=== PATIENT | male | born 1970 | race Caucasian/White ===

== ENCOUNTER 2017-11-15 12:26 | Inpatient (IN) ==
[2017-11-15] MEDS ORDERED: Famotidine 20 MG/2 ML VIAL IVP ONE (12:43)
[2017-11-15] MEDS ORDERED: Pregabalin 75 MG CAPSULE PO ONE (12:44)
[2017-11-15] MEDS ORDERED: Ringers Solution, Lactated 1,000 ML IVC SCH (12:45)
[2017-11-15] MEDS ORDERED: CeFAZolin Syr 2,000MG/20 ML 2,000 MG/20 ML SYRINGE IVPB ONE (13:07)
[2017-11-15] MEDS ORDERED: ROPIVACAINE HCL/PF 0.5% 30 ML VIAL ONE (13:16)
--- NOTE | 2017-11-15 13:23 | History & Physical Report ---
Date of Encounter: 11/15/17 Time of Encounter: 13:23 24 Hour HP Update - Instructions Instructions: If the History and Physical is less than 30 days old and was completed prior to A.M. admission and or procedure and has NOT been updated on calendar day of procedure please complete this update prior to performing procedure. - Update Patient reports changes in Medical Condition: No Changes in examination, assessment, or condition: No Changes in Medication: No Preop tests/diagnostics Reviewed: Yes Surgery Remains Indicated: Yes Consent for Planned Operative Procedure(s) Verified: Yes - Pre-Operative Checklist Preoperative Checklist Indicated: No Prophylactic Antibiotic Ordered: Yes Is VTE Prophylaxis Indicated?: Yes
--- NOTE | 2017-11-15 13:24 | Discharge Summary ---
Date of Encounter: 11/19/17 Time of Encounter: 06:46 - Discharge Diagnosis (1) Tibial plateau fracture, left Priority: Primary Status: Acute Qualifiers: Encounter type: initial encounter Fracture type: closed Qualified Code(s) : S82.142A - Displaced bicondylar fracture of left tibia, initial encounter for closed fracture - Hospital Course Hospital course: Mr. Damico is a 46 year old male Status post open reduction internal fixation left tibial plateau. Patient's discharge held secondary to placement.The patient had an uneventful postoperative course. They received antibiotics and physical therapy and were discharged in stable condition. There will follow-up in the office in 2 weeks. - Time Spent with Patient Total time spent providing and/or coordinating discharge services: - Discharge Medications Home Medications: Buprenorphine HCl/Naloxone HCl [Buprenorphin-Naloxon 8-2 mg Sl] 1.5 tab SL HS [History] DULoxetine [Cymbalta] 20 mg PO HS 11/15/17 [History] Allergies/Adverse Reactions: 3 Allergy/AdvReac Type Severity Reaction Status Date / Time No Known Allergies Allergy Verified 11/15/17 13:07 Primary care physician: PCP NONE - Patient Status Disposition: Transfer Inpatient Rehab Fac Condition: Good Functional capacity at discharge: uses cane/walker Overall status at discharge: patient is progressing back to baseline - Discharge Instructions Follow Up With: NONE,PCP [Primary Care Provider] -
[2017-11-15] MEDS ORDERED: Dexmedetomidine HCl 200 MCG/50 ML MLS IVC ONE (13:26)
--- NOTE | 2017-11-15 13:26 | Anesthesia Evaluation PreOp ---
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 HX Other Medical History: Denies Any Significant HX Anesthesia History: No Prior Anesthetic Complications Alcohol Use: occasionally Drug use: none (suboxone), other Medications and Allergies Buprenorphine HCl/Naloxone HCl [Buprenorphin-Naloxon 8-2 mg Sl] 1.5 mg SL HS [History] DULoxetine [Cymbalta] 20 mg PO HS 11/15/17 [History] 3 Allergy/AdvReac Type Severity Reaction Status Date / Time No Known Allergies Allergy Verified 11/15/17 13:07 - Meds/Allergy Pre-op Review Medications Reviewed: Yes Allergies Reviewed: Yes Beta Blockers on Current Med List: No Anesthesia Exam O2 Sat Height 1.83 m Height 1.83 m Height 1.83 m Weight 98.43 kg Weight 98.43 kg Weight 98.43 kg O2 Sat by Pulse Oximetry 95 O2 Sat by Pulse Oximetry 95 Vital Signs Temp Pulse Resp BP Pulse Ox 98.2 F 80 18 121/68 95 11/15/17 12:53 11/15/17 12:53 11/15/17 12:53 11/15/17 12:53 11/15/17 12:53 Height: 6'0 Weight: 217 lbs NPO (# of Hours): MN Pain Scale: 0 - HEENT Pupil (Motor): Pupils equal, EOMI Mallampati: III Teeth: Missing, Poor dentition Oral Opening: Greater than 3 - SHEET METAL PATTERN CUTTER LOC: Oriented SHEET METAL PATTERN CUTTER Motor: Normal RUE, Normal LUE, Normal RLE, Normal LLE, Normal Face SHEET METAL PATTERN CUTTER Sensory: Normal: RUE, LUE, RLE, LLE, Face - Cardiac Rhythm: Regular Murmur: None JVD: No Carotid Bruit: No - Pulmonary Breath Sounds: bilateral Clear Respiratory Effort: Symmetrical Anesthesia Assess/Plan ASA Score: 2 Modified [place] Scale for Level of Consciousness: Cooperative, oriented, and tranquil Anesthetic Plan: General, Regional Monitoring Plan: Standard Monitors Recovery Plan: PACU (Discussed GA and RA, agrees to proceed)
[2017-11-15] MEDS ORDERED: Albuterol 2.5 MG/3 ML NEBULIZER IH ONE (13:29)
[2017-11-15] MEDS ORDERED: Albuterol 2.5 MG/3 ML NEBULIZER ONE (13:33)
[2017-11-15] MEDS ORDERED: *HR* Midazolam HCl 2 MG/2 ML VIAL ONE ×2 (13:36→13:38)
[2017-11-15] MEDS ORDERED: *HR* Propofol 200 MG/20 ML VIAL IVP ONE ×2 (13:37→14:42)
[2017-11-15] MEDS ORDERED: Ondansetron 4 MG/2 ML VIAL ONE (13:40)
[2017-11-15] MEDS ORDERED: Lidocaine -MPF 2% 2 ML VIAL ONE (13:40)
[2017-11-15] MEDS ORDERED: Dexamethasone 4 MG/ML VIAL ONE (13:40)
--- NOTE | 2017-11-15 14:25 | Anesthesia Procedures ---
Date of Encounter: 11/15/17 Time of Encounter: 14:05 Procedures: Anesthesia - Nerve Block Procedure Date: 11/15/17 Time: 14:05 Allergies/Adv Reactions: NKA Pre-op Diagnosis: L Tibial Plateau Fracture Surgical Procedure: ORIF L Tibial Plateau Checklist: Correct Patient Identifier, Correct procedure, History checked Correct side: Left Blood Thinner: No Monitor Applied: EKG, BP, Pulse Oximetry Supplemental Oxygen via Nasal Cannula (L/min): 2 Sedation: Versed (mg): 4 (In addition to 50mg Ketamine) Indication: Post Op Analgesia Pre-op Neuro Deficits: No Block Type: Sciatic, Other (Adductor Canal Block) Catheter placed: No Sterile Technique: Yes Ultrasound used: Yes Anatomy identified: Yes Visual spread of Local: Yes Neuro Stimulation: Yes Nerve Stimulator Range: 0.2 - 0.4 mA (0.4mA for Sciatic.) Blood on Needle Aspiration: No Smooth Injection of Local: Yes Pain with Injection of Local: No Prep: Chlorhexadine Needle: 22 x 50 mm Stimuplex Local: Ropivacaine (0.5% Ropivacaine (20mL) with 10mg Decadron and 20mcg Precedex for Sciatic and 0.5% Ropivacaine 10ml for adductor canal block) Volume (cc): 30 Number of Attempts: 1 Complications: None/effective block Vitals: See nurses vital signs for PNB Comments: Pt tolerated without difficulty.
[2017-11-15] MEDS ORDERED: Ondansetron 4 MG/2 ML VIAL IVP ONE (15:15)
[2017-11-15] MEDS ORDERED: Ketorolac 30 MG/ML VIAL ONE (15:21)
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
--- NOTE | 2017-11-15 15:30 | Orthopedic Operative Note ---
Date of procedure: 11/15/17 Pre-op diagnosis: Displaced left lateral tibial plateau fracture Post-op diagnosis: same Procedure: Procedure: Left Open reduction internal fixation lateral tibial plateau Estimated blood loss: 50 mL Hardware Synthes 3-hole periarticular left lateral plate 4.5, 3 5.0 cannulated locking screws 1 5.0 conical screw 1 4.5 cortical screw Procedure: Patient brought to the operating placed on the operating table. After general anesthesia was administered the well leg was placed in the well leg lima the operative leg was placed in the legholder. The operative leg was prepped and draped in sterile surgical fashion, patient received IV antibiotics prior to skin incision. Utilizing fluoroscopic assistance the fracture was identified. A curved incision was made over the anterolateral aspect of the proximal tibia. Incision made through skin and subcutaneous tissue hemostasis was obtained with Bovie cautery. The fascia was incised along the anterolateral compartment. The muscle was elevated up bluntly off the lateral tibia. The fracture site was exposed. Utilizing fluoroscopic assistance the depressed fragment was identified and elevated with a bone tamp. Position of the fragment in the AP and lateral planes was found to be acceptable with fluoroscopic assistance. A Synthes 3- hole quyen-articular 4.5 plate was approximated to the anterolateral surface. It was fixed distally in compression with a 4.5 cortical screw proximally in compression with one 5.0 conical screw, and with 2 5.0 cannulated locking screws over guide pins. The position of the hardware as well as fracture reduction found acceptable in the AP and lateral planes. A kickstand screw was placed over guidewire 5.0 locking Wound was irrigated fascia was closed with a running #1 PDS suture subcutaneous case tissue to close 0 PDS suture skin was closed with skin arcadio, a sterile dressing postoperative brace extubated transferred to recovery in stable condition. Anesthesia: GETA Surgeon: Grayson Lara Was there an home based assistant present: Yes Reach Truck Operator: Cherie Robles Estimated blood loss (cc): 100 Condition: stable Disposition: PACU
--- NOTE | 2017-11-15 16:20 | Anesthesia Evaluation Post Op ---
Date of Encounter: 11/15/17 Time of Encounter: 16:17 - Vital Signs Vital Signs: Vital Signs/O2 Sat/Glucose, Most Recent Temp Pulse Resp BP Pulse Ox 97.8 F 66 16 117/79 96 11/15/17 15:39 11/15/17 15:59 11/15/17 15:59 11/15/17 15:59 11/15/17 15:59 Blood Glucose* 120 - Lungs Lungs: Clear Ascult./Percussion (O2/2L/NC) - Airway Airway: Non-obstructed - Cardiovascular Regular Rate - Mental Status Mental Status: Alert & Oriented, Answers Appropriately - Pain Pain Scale: 2 Pain Scale used: Numeric (1 - 10) - Nausea Vomiting Nausea Vomiting: Not Present - Hydration Hydration: Tolerates oral liquids, Has not voided Notes: 11/15/17 16:19 AAOx3,VSS with no complaints - Discharge PostOp Status: Transfer Patient to floor
[2017-11-15] MEDS ORDERED: Temazepam 15 MG CAPSULE PO PRN (17:01)
[2017-11-15] MEDS ORDERED: Ondansetron 4 MG/2 ML VIAL IVP PRN (17:01)
[2017-11-15] MEDS ORDERED: Sennosides 8.6 MG TABLET PO PRN (17:01)
[2017-11-15] MEDS ORDERED: Naloxone 0.4 MG/ML INJ IVP PRN (17:01)
[2017-11-15] MEDS ORDERED: MOM Conc 10 ML UD.LIQ PO PRN (17:01)
[2017-11-15] MEDS: NALOXONE HCL SL SCH (17:43)
[2017-11-15] MEDS: BUPRENORPHINE HCL SL SCH (17:43)
--- NOTE | 2017-11-15 18:29 | Event Note ---
Date of Encounter: 11/15/17 Time of Encounter: 18:29 Left ORIF of Tibial Plateau fracture 11/15/17 - Tscope, locked in ext. Partial WB only - XRAYS needed (arcadio) Appts made - printed and faxed to [facility] - confirmed
[2017-11-16 01:05] LABS: Hematocrit 41.1 % (37.5-50.1); Hemoglobin 13.9 g/dL (12.9-16.9)
[2017-11-16 01:25] LABS: BUN/Creatinine Ratio 16 (6-26); Blood Urea Nitrogen 12 mg/dL (6-20); Calcium 9.4 mg/dL (8.6-10.3); Carbon Dioxide 26 mEq/L (23-29); Chloride 102 mEq/L (98-107); Glucose 165 mg/dL (70-105); Osmolality,Calculated 283 (280-300); Potassium 4.6 mEq/L (3.5-5.1); Sodium 135 mEq/L (136-145); eGFR For African Americans > 60 (> 60); eGFR For Non-African Americans > 60 (> 60)
[2017-11-16] MEDS: Ringers Solution, Lactated 1,000 ML IVC SCH ×2 (03:15→18:35)
--- NOTE | 2017-11-16 06:19 | Orthopedics Progress Note ---
Date of Encounter: 11/16/17 Time of Encounter: 06:19 - Assessment and Plan (1) Tibial plateau fracture, left Current Visit: No Status: Acute Qualifiers: Encounter type: initial encounter Fracture type: closed Qualified Code(s) : S82.142A - Displaced bicondylar fracture of left tibia, initial encounter for closed fracture Subjective Interval history: Patient was seen this morning doing well without complaints. Afebrile vital signs stable. Operative extremity: Neurovascularly intact Dressing clean dry and intact Calves nontender Assessment and plan: Continue with postoperative care Hematocrit 41 discharged held secondary to placement Objective Vital signs: Vital Signs Temp Pulse Resp BP Pulse Ox 11/16/17 03:20 97.9 F 58 15 107/61 93 11/16/17 00:08 98 F 63 19 113/68 94 11/15/17 19:55 95 11/15/17 19:50 97.8 F 72 20 116/65 95 11/15/17 18:42 97.9 F 84 15 117/62 92 11/15/17 17:50 98 F 74 15 118/75 90 11/15/17 17:20 97.9 F 70 15 113/78 93 11/15/17 16:50 97.9 F 68 14 120/77 93 11/15/17 16:29 98.1 F 69 17 130/81 96 11/15/17 16:19 71 15 131/87 93 11/15/17 16:09 98.1 F 68 17 130/83 96 11/15/17 15:59 66 16 117/79 96 11/15/17 15:49 64 17 116/69 95 11/15/17 15:39 97.8 F 65 16 107/66 94 11/15/17 14:27 78 12 132/84 96 11/15/17 14:12 78 14 129/77 91 11/15/17 14:02 81 16 130/114 96 11/15/17 13:20 98.2 F 80 18 121/68 95 11/15/17 12:53 98.2 F 80 18 121/68 95 Intake and Output 18 18 11/16/17 15:59 23:59 07:59 Intake Total 440 / 440 550 / 550 Output Total 50 / 50 700 / 700 1300 / 1300 Balance -50 / -50 -260 / -260 -750 / -750 Intake: IV Fluids 100 / 100 Ancef 2,000 MG In 0.9 % Sodium 100 / 100 Chloride 100 ML @ 200 mls/hr IVPB Q8H [facility] Rx#:[id number] Oral 440 / 440 450 / 450 Output: Urine 700 / 700 1300 / 1300 Estimated Blood Loss 50 / 50 Other: Meal Dinner Percent of Meal Consumed 100% Weight 98.43 kg Blood Glucose* 120 164 - Labs CBC & BMP: 11/16/17 00:52 11/16/17 00:52 Labs: Abnormal lab results Sodium 135 mEq/L (136-145) L 11/16/17 00:52 Glucose 165 mg/dL (70-105) H 11/16/17 00:52 POC Glucose 164 mg/dL (70-99) H 11/15/17 20:57 - VTE Documentation of Mechanical Device: Venous foot pump, device Consult Discharge Plan - Plan Referrals: NONE,PCP [Primary Care Provider] -
[2017-11-16] MEDS ORDERED: D5% in Water 1,000 ML IVC PRN (11:26)
[2017-11-16] MEDS ORDERED: Dextrose Gel 15 GM/37.5 ML TUBE PO PRN ×2 (11:26)
[2017-11-16] MEDS ORDERED: *HR* Dextrose 50 % in Water (Syg) 50 ML SYRINGE IVP PRN (11:26)
--- NOTE | 2017-11-16 11:40 | Event Note ---
Date of Encounter: 11/16/17 Time of Encounter: 11:38 PCR- POD#1 status post left lateral tibial plateau ORIF Marco 11/15/17 PCR - Patient seen at bedside. Labwork and medications reviewed. H/H 13.9/41.4 Pain control: Adequate - NO further narcotics per Dr. Lara including upon discharge. Patient asking about changing (decreasing) his Suboxone dosing. We will confirm this with his prescriber to ensure that this is okay. Participating in PT. All questions and concerns addressed. Educated on use of incentive spirometer, ambulation, and hydration. Patient educated on post-operative restrictions and care. Addressed: see above. D/C plan: rehab secondary to social living situation - [facility]
[2017-11-16] MEDS: Insulin LISPRO 300 UNITS/3 ML VIAL SQ SCH ×3 (13:27→22:42)
[2017-11-16] MEDS: BUPRENORPHINE HCL SL SCH (18:33)
[2017-11-16] MEDS: NALOXONE HCL SL SCH (18:33)
[2017-11-17 01:19] LABS: Hematocrit 37.6 % (37.5-50.1); Hemoglobin 12.8 g/dL (12.9-16.9)
[2017-11-17 01:42] LABS: BUN/Creatinine Ratio 26 (6-26); Blood Urea Nitrogen 16 mg/dL (6-20); Carbon Dioxide 27 mEq/L (23-29); Chloride 106 mEq/L (98-107); Glucose 154 mg/dL (70-105); Osmolality,Calculated 292 (280-300); Potassium 4.3 mEq/L (3.5-5.1); Sodium 139 mEq/L (136-145); eGFR For African Americans > 60 (> 60); eGFR For Non-African Americans > 60 (> 60)
--- NOTE | 2017-11-17 06:28 | Orthopedics Progress Note ---
Date of Encounter: 11/17/17 Time of Encounter: 06:27 - Assessment and Plan (1) Tibial plateau fracture, left Current Visit: No Status: Acute Qualifiers: Encounter type: initial encounter Fracture type: closed Qualified Code(s) : S82.142A - Displaced bicondylar fracture of left tibia, initial encounter for closed fracture Subjective Interval history: Patient was seen this morning doing well without complaints. Afebrile vital signs stable. Operative extremity: Neurovascularly intact Dressing clean dry and intact Calves nontender Assessment and plan: Continue with postoperative care Hematocrit 37 discharged held secondary to placement Concern on afternoon rounds for dropfoot left side, this was not evaluated as a case in the morning. This morning patient does not have a dropfoot. Neurovascular intact Objective Vital signs: Vital Signs Temp Pulse Resp BP Pulse Ox 11/17/17 00:23 98.1 F 67 14 111/65 99 11/16/17 21:06 97 11/16/17 20:04 98.2 F 64 14 132/70 97 11/16/17 15:51 97.7 F 60 17 126/72 98 11/16/17 11:29 97.5 F L 56 15 137/75 97 11/16/17 08:00 92 11/16/17 07:47 97.7 F 63 16 104/65 92 Intake and Output 11/16/17 11/16/17 11/17/17 15:59 23:59 07:59 Intake Total 580 / 580 1120 / 1120 400 / 400 Output Total 900 / 900 575 / 575 900 / 900 Balance -320 / -320 545 / 545 -500 / -500 Intake: IV Fluids 1000 / 1000 Lactated Ringers 1,000 ML @ 75 1000 / 1000 mls/hr IVC .[id number] [facility] Rx#: [id number] Oral 580 / 580 120 / 120 400 / 400 Output: Urine 900 / 900 575 / 575 900 / 900 Other: Meal Lunch Dinner Percent of Meal Consumed 100% 100% Blood Glucose* 125 157 - Labs CBC & BMP: 11/17/17 00:55 11/17/17 00:55 Labs: Abnormal lab results Hgb 12.8 g/dL (12.9-16.9) L 11/17/17 00:55 Creatinine 0.61 mg/dL (0.70-1.30) L 11/17/17 00:55 Glucose 154 mg/dL (70-105) H 11/17/17 00:55 POC Glucose 125 mg/dL (70-99) H 11/16/17 15:55 - VTE Documentation of Mechanical Device: Venous foot pump, device Consult Discharge Plan - Plan Referrals: NONE,PCP [Primary Care Provider] -
[2017-11-17] MEDS: Insulin LISPRO 300 UNITS/3 ML VIAL SQ SCH ×3 (07:31→16:23)
[2017-11-17] MEDS: Ibuprofen 600 MG TABLET PO PRN ×2 (09:51→16:20)
[2017-11-17] MEDS: Ringers Solution, Lactated 1,000 ML IVC SCH (16:22)
--- NOTE | 2017-11-17 17:58 | Event Note ---
Date of Encounter: 11/17/17 Time of Encounter: 11:45 PCR- POD#2 status post left lateral tibial plateau ORIF Marco 11/15/17 PCR - Patient seen at bedside. Friend at bedside. Vital signs reviewed. Labwork and medications reviewed. 11/16 H/H 13.9/41.4 11/17 H/H 12.8/37.6 Pain control: Adequate - NO further narcotics per Dr. Lara including upon discharge. Patient asking about changing (decreasing) his Suboxone dosing. We will confirm this with his prescriber to ensure that this is okay. Received call later in day that patient ok to decrease suboxone dosing. Participating in PT. OK FOR CPM OUT OF BRACE - OTHERWISE TROM IN LOCKED EXTENSION WITH AMBULATION. PWB. NO foot drop noted on exam. Swelling much improved today with near full ROM left ankle. Patient still c/o pain to left calf however less intense than yesterday and swelling much improved. All questions and concerns addressed. Educated on use of incentive spirometer, ambulation, and hydration. Patient educated on post-operative restrictions and care. Addressed: OK FOR CPM OUT OF BRACE - OTHERWISE TROM IN LOCKED EXTENSION WITH AMBULATION. PWB.. [facility]C [facility] [place].
[2017-11-17] MEDS: BUPRENORPHINE HCL SL SCH (18:15)
[2017-11-17] MEDS: NALOXONE HCL SL SCH (18:15)
[2017-11-18] MEDS: Insulin LISPRO 300 UNITS/3 ML VIAL SQ SCH ×5 (03:18→20:53)
[2017-11-18] MEDS: Ibuprofen 600 MG TABLET PO PRN (05:57)
--- NOTE | 2017-11-18 06:24 | Orthopedics Progress Note ---
Date of Encounter: 11/18/17 Time of Encounter: 06:24 - Assessment and Plan (1) Tibial plateau fracture, left Current Visit: No Status: Acute Qualifiers: Encounter type: initial encounter Fracture type: closed Qualified Code(s) : S82.142A - Displaced bicondylar fracture of left tibia, initial encounter for closed fracture Subjective Interval history: Patient was seen this morning doing well without complaints. Afebrile vital signs stable. Operative extremity: Neurovascularly intact Dressing clean dry and intact Calves nontender Assessment and plan: Continue with postoperative care Discharge when placed Objective Vital signs: Vital Signs Temp Pulse Resp BP Pulse Ox 11/17/17 23:47 98.0 F 58 14 128/76 95 11/17/17 21:35 99 11/17/17 19:24 98.1 F 72 16 124/73 99 11/17/17 15:16 97.7 F 70 15 114/68 95 11/17/17 11:07 97.8 F 81 12 126/74 96 11/17/17 09:00 99 11/17/17 06:41 97.9 F 64 18 115/70 99 Intake and Output 11/17/17 11/17/17 11/18/17 15:59 23:59 07:59 Intake Total 540 / 540 Output Total 200 / 200 300 / 300 Balance -200 / -200 240 / 240 Intake: Oral 540 / 540 Output: Urine 200 / 200 300 / 300 Other: Meal Dinner Percent of Meal Consumed 75% Blood Glucose* 120 119 - Labs CBC & BMP: 11/17/17 00:55 11/17/17 00:55 Labs: Abnormal lab results Hgb 12.8 g/dL (12.9-16.9) L 11/17/17 00:55 Creatinine 0.61 mg/dL (0.70-1.30) L 11/17/17 00:55 Glucose 154 mg/dL (70-105) H 11/17/17 00:55 POC Glucose 119 mg/dL (70-99) H 11/17/17 16:22 - VTE Documentation of Mechanical Device: Venous foot pump, device Consult Discharge Plan - Plan Referrals: NONE,PCP [Primary Care Provider] -
[2017-11-18] MEDS: SUBOXONE PO SCH (08:36)
--- NOTE | 2017-11-18 11:47 | Event Note ---
Date of Encounter: 11/18/17 Time of Encounter: 12:05 PCR- POD#3 status post left lateral tibial plateau ORIF Marco 11/15/17 PCR - Patient seen at bedside. Friend at bedside. Vital signs reviewed. Labwork and medications reviewed. 11/16 H/H 13.9/41.4 11/17 H/H 12.8/37.6 Pain control: Adequate - NO further narcotics per Dr. Lara including upon discharge. Patient asking about changing (decreasing) his Suboxone dosing. We will confirm this with his prescriber to ensure that this is okay. Received call later in day that patient ok to decrease suboxone dosing. Participating in PT. OK FOR CPM OUT OF BRACE - OTHERWISE TROM IN LOCKED EXTENSION WITH AMBULATION. PWB. NO foot drop noted on exam. Swelling much improved today with near full ROM left ankle. Patient still c/o pain to left calf however less intense than yesterday and swelling much improved. TROM brace in place. All questions and concerns addressed. Educated on use of incentive spirometer, ambulation, and hydration. Patient educated on post-operative restrictions and care. Addressed: OK FOR CPM OUT OF BRACE - OTHERWISE TROM IN LOCKED EXTENSION WITH AMBULATION. PWB.. *Patient on last day of supply of Suboxone - working to clarify how patient to continue his rehab drug therapy; Nurse navigator working to help get patient therapy arranged. D/C plan: rehab secondary to social living situation - awaiting placement
[2017-11-18] MEDS ORDERED: SUBOXONE PO SCH (18:00)
--- NOTE | 2017-11-19 06:47 | Orthopedics Progress Note ---
Date of Encounter: 11/19/17 Time of Encounter: 06:47 - Assessment and Plan (1) Tibial plateau fracture, left Current Visit: No Status: Acute Qualifiers: Encounter type: initial encounter Fracture type: closed Qualified Code(s) : S82.142A - Displaced bicondylar fracture of left tibia, initial encounter for closed fracture Subjective Interval history: Patient was seen this morning doing well without complaints. Afebrile vital signs stable. Operative extremity: Neurovascularly intact Dressing clean dry and intact Calves nontender Assessment and plan: Continue with postoperative care Discharge today Objective Vital signs: Vital Signs Temp Pulse Resp BP Pulse Ox 11/19/17 06:36 98.1 F 79 16 107/66 93 11/18/17 23:45 98.7 F 72 16 121/75 92 11/18/17 19:23 98.5 F 68 14 123/75 94 11/18/17 15:13 98.1 F 60 16 118/70 95 11/18/17 11:42 98.1 F 55 16 112/70 98 11/18/17 06:58 97.9 F 59 16 126/70 94 Intake and Output 11/18/17 11/18/17 11/19/17 15:59 23:59 07:59 Intake Total 240 / 240 50 / 50 50 / 50 Output Total 400 / 400 1750 / 1750 825 / 825 Balance -160 / -160 -1700 / -1700 -775 / -775 Intake: Oral 240 / 240 50 / 50 50 / 50 Output: Urine 400 / 400 1750 / 1750 825 / 825 Other: Meal Breakfast Dinner Percent of Meal Consumed 100% 100% Blood Glucose* 176 125 - Labs CBC & BMP: 11/17/17 00:55 11/17/17 00:55 Labs: Abnormal lab results Hgb 12.8 g/dL (12.9-16.9) L 11/17/17 00:55 Creatinine 0.61 mg/dL (0.70-1.30) L 11/17/17 00:55 Glucose 154 mg/dL (70-105) H 11/17/17 00:55 POC Glucose 106 mg/dL (70-99) H 11/18/17 06:56 - VTE Documentation of Mechanical Device: Venous foot pump, device Consult Discharge Plan - Plan Referrals: NONE,PCP [Primary Care Provider] -
[2017-11-19] MEDS: Insulin LISPRO 300 UNITS/3 ML VIAL SQ SCH ×4 (07:24→19:43)
[2017-11-19] MEDS: SUBOXONE PO SCH (08:51)
--- NOTE | 2017-11-19 11:45 | Event Note ---
Date of Encounter: 11/19/17 Time of Encounter: 08:40 PCR- POD#4 status post left lateral tibial plateau ORIF Marco 11/15/17 PCR - Patient seen at bedside. Vital signs reviewed. Labwork and medications reviewed. 11/16 H/H 13.9/41.4 11/17 H/H 12.8/37.6 Pain control: Adequate - NO further narcotics per Dr. Lara including upon discharge. Patient asking about changing (decreasing) his Suboxone dosing. We will confirm this with his prescriber to ensure that this is okay. Received call later in day that patient ok to decrease suboxone dosing. 11/17 Participating in PT. OK FOR CPM OUT OF BRACE - OTHERWISE TROM IN LOCKED EXTENSION WITH AMBULATION. PWB. NO foot drop noted on exam. Swelling much improved today with near full ROM left ankle. Patient still c/o pain to left calf however less intense than yesterday and swelling much improved. TROM brace in place. All questions and concerns addressed. Educated on use of incentive spirometer, ambulation, and hydration. Patient educated on post-operative restrictions and care. Addressed: OK FOR CPM OUT OF BRACE - OTHERWISE TROM IN LOCKED EXTENSION WITH AMBULATION. PWB.. *Patient on last day of supply of Suboxone - patient to transition to Subutex while inpatient. Patient will go to rehab with script for this from attending physician for transfer. Patient's prescriber and rehab team to be continually notified regarding patient's change of status regarding location and transfer so they can follow and see him immediately following discharge from F. D/C plan: rehab secondary to social living situation - awaiting placement
[2017-11-19] MEDS: *HR* Buprenorphine HCl 8 MG TAB.SUBL SL SCH (16:59)
[2017-11-20] MEDS ORDERED: Ketorolac 30 MG/ML VIAL IVP ONE (07:39)
[2017-11-20] MEDS: Insulin LISPRO 300 UNITS/3 ML VIAL SQ SCH ×4 (07:46→21:03)
[2017-11-20] MEDS: *HR* Buprenorphine HCl 8 MG TAB.SUBL SL SCH ×2 (07:46→17:32)
[2017-11-20] MEDS: Ibuprofen 600 MG TABLET PO PRN (20:59)
[2017-11-21] MEDS: Insulin LISPRO 300 UNITS/3 ML VIAL SQ SCH ×4 (08:41→20:40)
[2017-11-21] MEDS: *HR* Buprenorphine HCl 8 MG TAB.SUBL SL SCH ×2 (08:42→17:39)
--- NOTE | 2017-11-21 16:47 | Orthopedics Progress Note ---
Date of Encounter: 11/20/17 Time of Encounter: 08:25 Subjective Principal diagnosis: s/p left knee ORIF Interval history: The patient is without complaints. Afebrile vital signs are stable. Incision is clean dry and intact. Neurovascularly intact with regard to bilateral lower extremities. Fires all upper and lower extremity motor groups. Assessment : stable. Plan mobilize ,continue analgesics, discharge planning. Objective Vital signs: Vital Signs Temp Pulse Resp BP Pulse Ox 11/21/17 16:11 98.7 F 84 18 119/78 92 11/21/17 11:49 98.1 F 70 18 110/75 95 11/21/17 07:56 97.8 F 72 18 111/69 96 11/21/17 03:17 97.8 F 65 16 110/68 93 11/20/17 23:06 98.4 F 66 16 102/62 95 11/20/17 18:41 99.3 F 97 18 117/75 93 Intake and Output 11/21/17 11/21/17 11/21/17 07:59 15:59 23:59 Intake Total 50 / 50 240 / 240 Output Total 1350 / 1350 600 / 600 Balance -1300 / -1300 -360 / -360 Intake: Oral 50 / 50 240 / 240 Output: Urine 1350 / 1350 600 / 600 Other: Meal Lunch Percent of Meal Consumed 100% Blood Glucose* 103 93 103 - Labs CBC & BMP: 11/17/17 00:55 11/17/17 00:55 Labs: Abnormal lab results Hgb 12.8 g/dL (12.9-16.9) L 11/17/17 00:55 Creatinine 0.61 mg/dL (0.70-1.30) L 11/17/17 00:55 Glucose 154 mg/dL (70-105) H 11/17/17 00:55 - VTE Documentation of Mechanical Device: Venous foot pump, device Consult Discharge Plan - Plan Referrals: NONE,PCP [Primary Care Provider] - Prescriptions: Buprenorphine HCl/Naloxone HCl [Buprenorphin-Naloxon 8-2 mg Sl] 1.5 each SL Q24H 7 Days #7 tab.subl
[2017-11-21] MEDS: Ibuprofen 600 MG TABLET PO PRN (20:39)
[2017-11-22] MEDS: Ibuprofen 600 MG TABLET PO PRN ×2 (06:21→15:32)
--- NOTE | 2017-11-22 06:42 | Orthopedics Progress Note ---
Date of Encounter: 11/22/17 Time of Encounter: 06:41 - Assessment and Plan (1) Tibial plateau fracture, left Current Visit: No Status: Inactive Qualifiers: Encounter type: initial encounter Fracture type: closed Qualified Code(s) : S82.142A - Displaced bicondylar fracture of left tibia, initial encounter for closed fracture Subjective Principal diagnosis: s/p left knee ORIF Interval history: Patient was seen this morning doing well without complaints. Afebrile vital signs stable. Operative extremity: Neurovascularly intact Dressing clean dry and intact Calves nontender Assessment and plan: Continue with postoperative care Discharge today Objective Vital signs: Vital Signs Temp Pulse Resp BP Pulse Ox 11/22/17 06:27 98.0 F 65 16 126/79 96 11/22/17 00:36 98.2 F 68 14 113/75 92 11/21/17 19:12 98.5 F 88 16 133/71 92 11/21/17 16:11 98.7 F 84 18 119/78 92 11/21/17 11:49 98.1 F 70 18 110/75 95 11/21/17 07:56 97.8 F 72 18 111/69 96 Intake and Output 11/21/17 11/21/17 11/22/17 15:59 23:59 07:59 Intake Total 240 / 240 240 / 240 400 / 400 Output Total 600 / 600 300 / 300 Balance -360 / -360 240 / 240 100 / 100 Intake: Oral 240 / 240 240 / 240 400 / 400 Output: Urine 600 / 600 300 / 300 Other: Meal Lunch Dinner Percent of Meal Consumed 100% 100% Blood Glucose* 93 125 - Labs CBC & BMP: 11/17/17 00:55 11/17/17 00:55 Labs: Abnormal lab results Hgb 12.8 g/dL (12.9-16.9) L 11/17/17 00:55 Creatinine 0.61 mg/dL (0.70-1.30) L 11/17/17 00:55 Glucose 154 mg/dL (70-105) H 11/17/17 00:55 POC Glucose 109 mg/dL (70-99) H 11/20/17 20:25 - VTE Documentation of Mechanical Device: Venous foot pump, device Consult Discharge Plan - Plan Referrals: NONE,PCP [Primary Care Provider] - Prescriptions: Buprenorphine HCl/Naloxone HCl [Buprenorphin-Naloxon 8-2 mg Sl] 1.5 each SL Q24H 7 Days #7 tab.subl
[2017-11-22] MEDS: *HR* Buprenorphine HCl 8 MG TAB.SUBL SL SCH ×2 (07:42→18:35)
[2017-11-22] MEDS: Insulin LISPRO 300 UNITS/3 ML VIAL SQ SCH ×4 (07:42→20:06)
[2017-11-22] MEDS: Ringers Solution, Lactated 1,000 ML IVC SCH ×3 (09:01→09:03)
[2017-11-23] MEDS: Ibuprofen 600 MG TABLET PO PRN (03:07)
--- NOTE | 2017-11-23 06:56 | Orthopedics Progress Note ---
Date of Encounter: 11/23/17 Time of Encounter: 06:55 - Assessment and Plan (1) Tibial plateau fracture, left Current Visit: No Status: Inactive Qualifiers: Encounter type: initial encounter Fracture type: closed Qualified Code(s) : S82.142A - Displaced bicondylar fracture of left tibia, initial encounter for closed fracture Subjective Principal diagnosis: s/p left knee ORIF Interval history: Patient was seen this morning doing well without complaints. Afebrile vital signs stable. Operative extremity: Neurovascularly intact Dressing clean dry and intact Calves nontender Assessment and plan: Continue with postoperative care Discharge today Objective Vital signs: Vital Signs Temp Pulse Resp BP Pulse Ox 11/22/17 23:01 98.6 F 68 16 110/67 94 11/22/17 18:27 97.9 F 69 16 116/75 97 11/22/17 15:08 98.0 F 63 18 113/73 97 11/22/17 11:16 98.1 F 66 18 112/73 97 11/22/17 07:48 96 Intake and Output 11/22/17 11/22/17 11/23/17 15:59 23:59 07:59 Intake Total 350 / 350 50 / 50 Output Total 700 / 700 850 / 850 525 / 525 Balance -700 / -700 -500 / -500 -475 / -475 Intake: Oral 350 / 350 50 / 50 Output: Urine 700 / 700 850 / 850 525 / 525 Other: Blood Glucose* 130 145 - Labs CBC & BMP: 11/17/17 00:55 11/17/17 00:55 Labs: Abnormal lab results Hgb 12.8 g/dL (12.9-16.9) L 11/17/17 00:55 Creatinine 0.61 mg/dL (0.70-1.30) L 11/17/17 00:55 Glucose 154 mg/dL (70-105) H 11/17/17 00:55 POC Glucose 145 mg/dL (70-99) H 11/22/17 18:52 - VTE Documentation of Mechanical Device: Venous foot pump, device Consult Discharge Plan - Plan Referrals: NONE,PCP [Primary Care Provider] - Prescriptions: Buprenorphine HCl/Naloxone HCl [Buprenorphin-Naloxon 8-2 mg Sl] 1.5 each SL Q24H 7 Days #7 tab.subl
[2017-11-23] MEDS: *HR* Buprenorphine HCl 8 MG TAB.SUBL SL SCH ×2 (08:01→16:54)
[2017-11-23] MEDS: Insulin LISPRO 300 UNITS/3 ML VIAL SQ SCH ×4 (08:02→20:31)
--- NOTE | 2017-11-23 21:38 | Event Note ---
Date of Encounter: 11/23/17 Time of Encounter: 21:36 Patient doing well; dressing c/d/i. New dressing to be placed prior to discharge. CHRISTIANE has been working on placement - CALL TO [place] [id number]/[facility] VOICE MSG. LEFT. CALL TO [facility] IN [facility], SPOKE WITH DANIELLE, REFERRAL MADE, DANIELLE INFORMS THEY HAVE A DOCTOR THAT WILL OVERSEE THE SUBTEX MEDS AND CM ASST ARLETTE FAXED PT'S PHI. AWAIT CALL BACK FROM [facility] ON ACCEPTANCE THERE, PT/OT STILL RECOMMEND REHAB. Continue with current plan
--- NOTE | 2017-11-24 06:15 | Orthopedics Progress Note ---
Date of Encounter: 11/24/17 Time of Encounter: 06:14 - Assessment and Plan (1) Tibial plateau fracture, left Current Visit: No Status: Inactive Qualifiers: Encounter type: initial encounter Fracture type: closed Qualified Code(s) : S82.142A - Displaced bicondylar fracture of left tibia, initial encounter for closed fracture Subjective Principal diagnosis: s/p left knee ORIF Interval history: Patient was seen this morning doing well without complaints. Afebrile vital signs stable. Operative extremity: Neurovascularly intact Dressing clean dry and intact Calves nontender Assessment and plan: Continue with postoperative care Discharge today held secondary to placement Objective Vital signs: Vital Signs Temp Pulse Resp BP Pulse Ox 11/24/17 03:04 98.5 F 77 18 122/83 93 11/24/17 00:15 98.4 F 71 18 111/72 95 11/23/17 19:20 98.7 F 72 16 112/74 95 11/23/17 16:04 97.7 F 69 17 138/84 98 11/23/17 10:29 98.8 F 95 17 136/85 95 11/23/17 08:11 95 11/23/17 06:57 97.5 F L 65 17 140/89 95 Intake and Output 11/23/17 11/23/17 11/24/17 15:59 23:59 07:59 Intake Total 600 / 600 990 / 990 200 / 200 Output Total 800 / 800 1100 / 1100 675 / 675 Balance -200 / -200 -110 / -110 -475 / -475 Intake: Oral 600 / 600 990 / 990 200 / 200 Output: Urine 800 / 800 1100 / 1100 675 / 675 Other: Meal Lunch Dinner Percent of Meal Consumed 100% 100% Blood Glucose* 98 116 - Labs CBC & BMP: 11/17/17 00:55 11/17/17 00:55 Labs: Abnormal lab results Hgb 12.8 g/dL (12.9-16.9) L 11/17/17 00:55 Creatinine 0.61 mg/dL (0.70-1.30) L 11/17/17 00:55 Glucose 154 mg/dL (70-105) H 11/17/17 00:55 - VTE Documentation of Mechanical Device: Venous foot pump, device Consult Discharge Plan - Plan Referrals: NONE,PCP [Primary Care Provider] - Prescriptions: Buprenorphine HCl/Naloxone HCl [Buprenorphin-Naloxon 8-2 mg Sl] 1.5 each SL Q24H 7 Days #7 tab.subl
[2017-11-24] MEDS: Insulin LISPRO 300 UNITS/3 ML VIAL SQ SCH ×4 (08:02→20:35)
[2017-11-24] MEDS: *HR* Buprenorphine HCl 8 MG TAB.SUBL SL SCH ×2 (08:35→18:01)
--- NOTE | 2017-11-24 10:49 | Physician Discharge Referral ---
ExtendedCare Referral Info Transfer To: [facility] Provider in Charge: Dr Grayson Lara - Diagnosis (1) Tibial plateau fracture, left Priority: Primary Status: Chronic (2) History of opioid abuse Priority: Secondary (Patient under care of [address] in [place], [place]. Patient to continue Subutex while at rehabilitation for his leg. Upon discharge from [facility], patient is to be seen same day by [address].) Status: Chronic (3) History of open reduction and internal fixation (ORIF) procedure Priority: Primary Status: Acute Expected Duration of Placement: less than 30 days Prognosis: Good Aware of Diagnosis: Patient Aware of Prognosis: Patient - Transfer Medications Prescriptions: Buprenorphine HCl/Naloxone HCl [Buprenorphin-Naloxon 8-2 mg Sl] 1.5 each SL Q24H 7 Days #7 tab.subl Home Medications: Buprenorphine HCl/Naloxone HCl [Buprenorphin-Naloxon 8-2 mg Sl] 1.5 tab SL HS [History] DULoxetine [Cymbalta] 20 mg PO HS 11/15/17 [History] Buprenorphine HCl/Naloxone HCl [Buprenorphin-Naloxon 8-2 mg Sl] 1.5 each SL Q24H 7 Days #7 tab.subl 11/19/17 [Rx] Allergies/Adverse Reactions: 3 Allergy/AdvReac Type Severity Reaction Status Date / Time No Known Allergies Allergy Verified 11/15/17 13:07 - Respiratory Orders Smoking Cessation: Smoking cessation has been advised. For more information, call the [place] Tobacco Quit Line at 7-386-BMYR-NOW. - Ancillary Orders May use pressure relief devices daily prn, May consult with Dentist, Cracking Unit Operator, Extern PRN - Mobility Orders Chair, Ambulate (PARTIAL WEIGHT BEARING) - Rehabiliation Orders Rehab Potential: Good Rehab Orders: Evaluation for Physical Therapy, Evaluation for Occupational Therapy Other: TROM IN LOCKED EXTENSION WITH AMBULATION NO KNEE MOTION WITH WEIGHT BEARING. OK FOR CPM OUT OF BRACE - 2 HOURS DAILY Apply cold therapy wrap 3-6x/day for 20 minutes at a time. Encourage ambulation in brace throughout the day and incentive spirometer 10x/ hour. Elevate affected extremity above heart as tolerated. - Treatments Skin tear care topically daily PRN per policy List/Other: Opsite placed. Keep dressing intact until first follow up appointment. If greater than 50% saturated, notify office, remove dressing and place appropriate dressing back in place. Leave Zipline/arcadio intact. Opsite dressing is water resistant, not water-proof. OK to shower, but do not get dressing wet. - Diet Orders Regular CERTIFICATION: I certify that the transfer of the above named patient to an Extended Care Facility is necessary for the continuing treatment of the diagnosis listed. The above information is true and accurate reflection of patient's current condition. Confidential - Redisclosure prohibited without a patient's written consent.
[2017-11-24] MEDS: Ibuprofen 600 MG TABLET PO PRN (12:41)
--- NOTE | 2017-11-24 14:41 | Event Note ---
Date of Encounter: 11/24/17 Time of Encounter: 14:38 PCR- POD#9 status post left lateral tibial plateau ORIF Marco 11/15/17 PCR - Patient seen at bedside. Vital signs reviewed. Labwork and medications reviewed. 11/16 H/H 13.9/41.4 11/17 H/H 12.8/37.6 Pain control: Adequate on Subutex Participating in PT. OK FOR CPM OUT OF BRACE - OTHERWISE TROM IN LOCKED EXTENSION WITH AMBULATION. PWB. TROM brace in place. All questions and concerns addressed. Educated on use of incentive spirometer, ambulation, and hydration. Patient educated on post-operative restrictions and care. Addressed: OK FOR CPM OUT OF BRACE - OTHERWISE TROM IN LOCKED EXTENSION WITH AMBULATION. PWB.. *Patient out of supply of Suboxone - patient to transition to Subutex while inpatient. Patient will go to rehab with script for this from attending physician for transfer. Patient's prescriber and rehab team to be continually notified regarding patient's change of status regarding location and transfer so they can follow and see him immediately following discharge from [facility]. D/C plan: rehab secondary to social living situation - awaiting placement - possibly [facility] today
[2017-11-25] MEDS: Insulin LISPRO 300 UNITS/3 ML VIAL SQ SCH ×2 (07:38→11:41)
[2017-11-25] MEDS: *HR* Buprenorphine HCl 8 MG TAB.SUBL SL SCH (07:41)
--- NOTE | 2017-11-25 08:30 | Orthopedics Progress Note ---
Date of Encounter: 11/25/17 Time of Encounter: 08:30 - Assessment and Plan (1) Tibial plateau fracture, left Current Visit: No Status: Inactive Qualifiers: Encounter type: initial encounter Fracture type: closed Qualified Code(s) : S82.142A - Displaced bicondylar fracture of left tibia, initial encounter for closed fracture Subjective Principal diagnosis: s/p left knee ORIF Interval history: Patient was seen this morning doing well without complaints. Afebrile vital signs stable. Operative extremity: Neurovascularly intact Dressing clean dry and intact Calves nontender Assessment and plan: Continue with postoperative care Discharge today held secondary to placement Objective Vital signs: Vital Signs Temp Pulse Resp BP Pulse Ox 11/25/17 07:19 97.9 F 86 17 107/67 97 11/25/17 02:47 98.5 F 69 18 112/74 96 11/24/17 23:55 98.7 F 73 16 120/77 97 11/24/17 19:27 98.7 F 67 18 120/72 97 11/24/17 15:32 97.9 F 69 17 120/73 96 11/24/17 11:01 97.6 F 80 18 147/66 97 11/24/17 10:30 98.4 F 80 17 125/87 97 Intake and Output 11/24/17 11/25/17 11/25/17 23:59 07:59 15:59 Intake Total 890 / 890 100 / 100 Output Total 950 / 950 500 / 500 Balance -60 / -60 -400 / -400 Intake: Oral 890 / 890 100 / 100 Output: Urine 950 / 950 500 / 500 Other: Meal Dinner Percent of Meal Consumed 90% Stool Size Moderate Stool Consistency formed Stool Characteristics Normal for Patient Stool Color Brown # Voids 1 # Bowel Movements 1 Blood Glucose* 130 100 - Labs CBC & BMP: 11/17/17 00:55 11/17/17 00:55 Labs: Abnormal lab results Hgb 12.8 g/dL (12.9-16.9) L 11/17/17 00:55 Creatinine 0.61 mg/dL (0.70-1.30) L 11/17/17 00:55 Glucose 154 mg/dL (70-105) H 11/17/17 00:55 POC Glucose 130 mg/dL (70-99) H 11/24/17 20:35 - VTE Documentation of Mechanical Device: Venous foot pump, device Consult Discharge Plan - Plan Referrals: NONE,PCP [Primary Care Provider] - Prescriptions: Buprenorphine HCl/Naloxone HCl [Buprenorphin-Naloxon 8-2 mg Sl] 1.5 each SL Q24H 7 Days #7 tab.subl
[2017-11-25 11:24] VITALS: BP 116/73
[2017-11-25] MEDS: Ibuprofen 600 MG TABLET PO PRN (11:46)
--- NOTE | 2017-11-25 21:46 | Event Note ---
Date of Encounter: 11/25/17 Time of Encounter: 13:00 Patient clear for D/C today home - to friends house. Patients questions were addressed and answered. Opsite changed yesterday. XRAYS reviewed from 11/24 - stable f/up next week. PWB, Stay in Tscope brace. Gentle NWB ROM only.
== END 2017-11-25 16:54 | DRG 494 ==
LOC: 3NENU 12:26 → SAMDAY 12:26
PROVIDERS: ADMIT Orthopaedic Surgery; ATTEND Orthopaedic Surgery